=== PATIENT | male | born 1970 | race Two or more races ===

== ENCOUNTER 2023-05-20 15:08 | Emergency (ER) | payer OTHER ==
[~2023-05-20] VITALS: Ht 167.6 cm; Wt 80.0 kg
[2023-05-20 15:49] VITALS: BP 136/78; PULSE 96; RESP 17; TEMP 97.9; O2SAT 97
[2023-05-20] MEDS ORDERED: HYDR-4902 PO (17:38)
[2023-05-20] MEDS ORDERED: IBUP-1455 PO (17:39)
== END 2023-05-20 17:51 | disposition home or self-care (01) ==
LOC: ER 15:08
DX: S82.832A Other fracture of upper and lower end of left fibula, initial encounter for closed fracture (principal); X58.XXXA Exposure to other specified factors, initial encounter; Y93.89 Activity, other specified; Y92.89 Other specified places as the place of occurrence of the external cause; Y99.8 Other external cause status
CPT/HCPCS: 73610